=== PATIENT | female | born 1950 ===

== ENCOUNTER 2017-05-02 12:07 | Emergency (ER) | payer MEDICARE, BC ==
--- NOTE | 2017-05-02 12:47 | RAD ---
INDICATION: Pain and swelling LEFT wrist post fall on outstretched hand. COMPARISON: No relevant prior exams available [place] [facility] [place]. TECHNIQUE: AP, lateral, and oblique views LEFT wrist. REPORT AND IMPRESSION: Mildly comminuted and moderately impacted distal metaphyseal fracture of the radius with approximate 35 degrees apex volar angulation due to disproportionate dorsal impaction. Associated ulnar plus variance and grossly nondisplaced ulnar styloid avulsion. Bone density appears decreased. Soft tissue swelling about the wrist without significant focality.
[2017-05-02] MEDS ORDERED: Bupivacaine 0.25% MDV* 50 ML VIAL INJ ONE (14:15)
[2017-05-02] MEDS ORDERED: Bupivacaine 0.5% SDV PF* 10-30ML VIAL ONE (14:22)
[2017-05-02 16:10] VITALS: BP 117/32
--- NOTE | 2017-05-02 16:18 | ED ---
Upper Extremity Pain - HPI Summary HPI Summary: Patient presents to the ED with CC of left wrist pain and deformity s/p FOOSH injury while walking her dog this morning. Pain is 5/10, worse with movement and better with rest (1/10) pain scale. Denies numbness, tingling. No ecchymosis is noted. No other injuries per patient. She has had ice on the wrist for approximately 1 hour, but notes to swelling and small deformity in the radial side of the dorsum of the wrist. She has not taken any medications and declines any on arrival. Denies head injury. Pulses + 2 bilaterally. - History of Current Complaint Chief Complaint: EDExtremityUpper Stated Complaint: LT WRIST INJURY Time Seen by Provider: 05/02/17 12:18 Hx Obtained From: Patient Onset/Duration: Started Hours Ago Timing: Constant Severity Initially: Moderate Severity Currently: Moderate Pain Location: Wrist Character: Aching Aggravating Factor(s): Movement, Lifting, Flexion, Extension, Internal/External Rotation Alleviating Factor(s): Rest, Ice Associated Signs & Symptoms: Positive: Swelling, Bruising, Numbness/Tingling Related History: Dominant Hand Right - Risk Factors Non-Orthopedic Risk Factor: Negative DVT Risk Factors: Negative Septic Arthritis Risk Factor: Negative Compartment Syndrome Risk Factors: Pain PMH/Surg Hx/FS Hx/Imm Hx Previously Healthy: Yes - Immunization History Hx Pertussis Vaccination: No Immunizations Up to Date: Unable to Obtain/Confirm Infectious Disease History: No Infectious Disease History: Denies: Traveled Outside the [place] in Last 30 Days - Social History Occupation: Unemployed Lives: With Family Alcohol Use: None Hx Substance Use: No Substance Use Type: Reports: None Hx Tobacco Use: No Smoking Status (MU): Never Smoked Tobacco Review of Systems Constitutional: Negative Negative: Fever, Chills, Fatigue, Skin Diaphoresis Eyes: Negative Cardiovascular: Negative Respiratory: Negative Genitourinary: Negative Positive: no symptoms reported, see HPI Positive: Arthralgia - left wrist pain Positive: Other Neurological: Negative All Other Systems Reviewed And Are Negative: Yes Physical Exam Triage Information Reviewed: Yes Vital Signs On Initial Exam: Initial Vitals Temp Pulse Resp BP Pulse Ox 98.3 F 71 18 127/48 100 05/02/17 12:05/02/17 12:05/02/17 12:05/02/17 12:05/02/17 12:09 Vital Signs Reviewed: Yes Appearance: Positive: Well-Appearing, Well-Nourished Skin: Positive: Warm, Skin Color Reflects Adequate Perfusion Head/Face: Positive: Normal Head/Face Inspection Eyes: Positive: EOMI, YOLY, Conjunctiva Clear Neck: Positive: Supple, No Lymphadenopathy Respiratory/Lung Sounds: Positive: Clear to Auscultation, Breath Sounds Present Cardiovascular: Positive: Normal, RRR, Pulses are Symmetrical in both Upper and Lower Extremities Musculoskeletal: Positive: Normal, Strength/ROM Intact Neurological: Positive: Speech Normal Psychiatric: Positive: Affect/Mood Appropriate AVPU Assessment: Alert Diagnostics - Vital Signs Vital Signs Temp Pulse Resp BP Pulse Ox 05/02/17 16:09 98.7 F 71 16 117/32 98 05/02/17 12:09 98.3 F 71 18 127/48 100 - Laboratory Lab Statement: Any lab studies that have been ordered have been reviewed, and results considered in the medical decision making process. Course/Dx - Course Course Of Treatment: Patient presents to the ED with CC of left wrist pain and deformity. REPORT AND IMPRESSION: Mildly comminuted and moderately impacted distal metaphyseal. fracture of the radius with approximate 35 degrees apex volar angulation due to. disproportionate dorsal impaction. Associated ulnar plus variance and grossly nondisplaced. ulnar styloid avulsion. Bone density appears decreased. Soft tissue swelling about the. wrist without significant focality. Dr. Galarza is called who recommends hematoma block and reduction. Dr. Natarajan provided hematoma block in the L dorsum of the wrist. Patient tolerated, but felt lightheaded during the block. She recovered well and has moderate amount of relief from the pain. Finger traps applied with a countertraction of 3lbs to the humerus. 15 minutes in traps. Sugar tong applied. Patient tolerated well. She is given follow up for sunday with Dr. Galarza. She again declines any pain medications for rx and any medications in the ED. She is Ok with discharge and plan and referral is given. - Diagnoses Differential Diagnosis/HQI/PQRI: Positive: Fracture (Closed), Hematoma Provider Diagnoses: Traumatic closed displaced fracture of distal end of left radius and ulna - Physician Notifications Discussed Care of Patient With: Dilepe Galarza - to see patient in office on Sunday Instructed by Provider To: Have Pt Call For Appt. Discharge - Discharge Plan Condition: Stable Disposition: HOME Patient Education Materials: Wrist Fracture in Adults (ED) Referrals: Amy Hollis MD [Primary Care Provider] - Dileep Galarza MD [Medical Doctor] - 2 Days (Patient is to be seen on Sunday () by Dr. Galarza per Dr. Galarza ) Additional Instructions: Please follow up with Dr. Galarza on Sunday. Please call today or tomorrow and tell the office Dr. Galarza is expecting you on Sunday and notes you to be in need of surgery. They should give you an appt. Ibuprofen and tylenol intermittently for pain Keep the splint dry
== END 2017-05-02 16:09 | disposition home or self-care (01) ==
LOC: ED 12:07
DX: S52.92XA Unspecified fracture of left forearm, initial encounter for closed fracture (principal); M25.532 Pain in left wrist; W19.XXXA Unspecified fall, initial encounter; Y93.K1 Activity, walking an animal; Y92.9 Unspecified place or not applicable
CPT/HCPCS: 96374; 99282

== ENCOUNTER 2017-05-07 13:55 | Day surgery (SDC) | payer MEDICARE, BC ==
[~2017-05-07 13:55] MED LIST: Buffered Lidocaine 0.9% SYRIN* 5 ML/SYR SYRINGE INTRADERM ONE; Bupivacaine 0.25% SDV* 30 ML ONE; Dexamethasone IV* 4 MG/ML 1 ML (4 MG) IV SLOW PU ONE; Famotidine IV* 10 MG/ML 2 ML (20 mg) IV SLOW PU ONE
[2017-05-07] MEDS ORDERED: Naloxone* 0.4 MG/ML 1 ML VIAL IV PRN (13:56)
[2017-05-07] MEDS ORDERED: fentaNYL* 50 MCG/ML 2 ML VIAL (100 MCG VIAL) IV PRN (13:56)
[2017-05-07] MEDS ORDERED: oxyCODONE/Acetamin 5/325 MG* TAB PO PRN (13:56)
[2017-05-07] MEDS ORDERED: Ondansetron INJ* 2 MG/ML VIAL IV PRN (14:02)
[2017-05-07] MEDS ORDERED: DiMENhydriNATE IV* 50 MG/ML VIAL IV PUSH PRN (14:02)
[2017-05-07] MEDS ORDERED: Ondansetron INJ* 2 MG/ML VIAL ONE (14:08)
[2017-05-07] MEDS ORDERED: Propofol* 10 MG/ML 20 ML BTL IV PUSH ONE (14:08)
[2017-05-07] MEDS ORDERED: Ketorolac INJ* 30 MG/ML 1 ML VIAL ONE (14:08)
[2017-05-07] MEDS ORDERED: fentaNYL* 50 MCG/ML 2 ML VIAL (100 MCG VIAL) ONE (14:08)
[2017-05-07] MEDS ORDERED: ROPIVACAINE 5 MG/ML 30 ML BTL (0.5%) ONE (14:08)
[2017-05-07] MEDS ORDERED: Midazolam* 1 MG/ML 10 ML VIAL (10 MG) ONE (14:08)
[2017-05-07] MEDS ORDERED: Atracurium* 10 MG/ML 10 ML VIAL ONE (14:09)
[2017-05-07] MEDS ORDERED: Dexamethasone IV* 4 MG/ML 1 ML (4 MG) ONE (14:16)
[2017-05-07] MEDS ORDERED: Famotidine IV* 10 MG/ML 2 ML (20 mg) ONE (14:17)
[2017-05-07] MEDS ORDERED: ceFAZolin 2 GM PREMIX (*) 2 GM/50 ML BAG IVPB ONE (14:21)
[2017-05-07 18:31] VITALS: BP 115/62
--- NOTE | 2017-05-08 08:46 | RAD ---
INDICATION: Left wrist ORIF, left wrist trauma COMPARISONS: May 02, 2017 TECHNIQUE: Fluoroscopy was provided for a surgical procedure. Total fluoroscopy time is: 20 seconds FINDINGS: Spot images demonstrate internal fixation of the distal radius. IMPRESSION: FLUOROSCOPY WAS PROVIDED FOR A SURGICAL PROCEDURE CPT II Codes: 6045F
--- NOTE | 2017-05-08 15:49 | OP ---
DATE OF OPERATION: 05/07/17 - [facility] DATE OF : 52 SURGEON: Dileep Galarza MD. SHEET METAL INSULATOR: HERMILA Shaw. An registered medical assistant was needed for the procedure to aide in position of the arm and retraction. ANESTHESIOLOGIST: Dr. Reveles. ANESTHESIA: Peripheral nerve block plus general. PRE-OP DIAGNOSIS: Left distal radius fracture. POST-OP DIAGNOSIS: Left distal radius fracture. OPERATIVE PROCEDURE: Open reduction and internal fixation, left distal radius fracture. INDICATIONS: Margoth had a very displaced distal radius fracture. I talked to her about her options. She wanted to proceed with surgery. We talked about risks and benefits. ESTIMATED BLOOD LOSS: 5 mL. COMPLICATIONS: None. FINDINGS: As expected. DESCRIPTION OF PROCEDURE: Margoth was seen in the preoperative holding area. The correct side, site, and procedure were identified. We came back to the operating room. The arm was prepped and draped in the usual fashion. A time- out was performed. I began by making a longitudinal incision over the distal aspect of the FCR tendon. Dissection was carried down and the FCR tendon sheath was opened. The tendon was retracted ulnarly. The subsheath was opened. The pronator quadratus was released off its radial margin and teed back transversely distally , leaving the distal 3 or so millimeters of extrinsic capsular ligaments intact. Fracture site was visualized and was mobilized. The interposed soft tissue was removed. The fracture edges were cleaned. I went ahead and performed a closed reduction maneuver. I placed the hand in 10 pounds of traction using the Ar[employer]rex hand chandler and some weights hung off at the end of the bed. The fracture reduced very nicely. I went ahead and selected my [employer]s variable angle distal radius plate. This was placed on the volar aspect of the bone and pinned into place. The reduction was checked. I placed one 2.4 mm cortical screw in the oblong hole. I was placed the foremost distal locking screws in the distal 4 holes. I checked the fluoroscopic imaging. Everything was looking excellent, so I placed 2 more 2.4 mm cortical screws in the 2 most proximal screws and 1 more locking screw on the radial side distally. Everything was looking very good. We got some final fluoroscopic imaging. Pronator quadratus was closed with 3-0 Vicryl and skin was closed with 4- 0 Monocryl and Steri-Strips. The wound was dressed with 4x4, sterile Webril, and cockup wrist splint was applied. Tourniquet was deflated. She was taken to the recovery room in stable condition. [id number] #: [id number] MTDD
== END 2017-05-07 18:33 | disposition home or self-care (01) ==
LOC: OR 13:55
PROVIDERS: ATTEND Orthopaedic Surgery Hand Surgery
DX: S52.502A Unspecified fracture of the lower end of left radius, initial encounter for closed fracture (principal); W00.0XXA Fall on same level due to ice and snow, initial encounter; Y92.9 Unspecified place or not applicable; G89.18 Other acute postprocedural pain
CPT/HCPCS: 76001; C1713; C1776; J0690; J1100; J1885; J2250; J2405; J2704; J2795; J3010